=== PATIENT | male | born 1940 | race Caucasian/White ===

== ENCOUNTER → 2023-05-16 | Outpatient (RCR) | payer OTHER ==
[2023-04-29 12:55] LABS: CALCIUM 8.8 MG/DL (8.5-10.1); POTASSIUM 3.2 MMOL/L (3.6-5.0)
== END | disposition home or self-care (01) ==
LOC: ONC 04-24 09:36
PROVIDERS: ATTEND Radiology Radiation Oncology
DX: Z51.0 Encounter for antineoplastic radiation therapy (principal); C71.3 Malignant neoplasm of parietal lobe
CPT/HCPCS: 77300; 77301; 77334; 77336; 77338; 77386; 80048; 99205